=== PATIENT | male | born 1960 | race Caucasian/White ===

== ENCOUNTER 2021-01-05 10:41 | Outpatient (CLI) | payer BC, OTHER, SELFPAY ==
[2021-01-05 12:49] LABS: #Basophils 0.1 10x3/uL (0.0-0.2); #Eosinphils 0.2 10x3/uL (0.0-0.5); #Monocytes 0.7 10x3/uL (0.0-1.1); #Neutrophils 4.5 10x3/uL (1.5-8.4); %Basophils 1.2 % (0.0-2.0); %Eosinophils 2.4 % (0.0-6.0); %Lymphocytes 27.2 % (18.0-47.0); %Monocytes 8.7 % (0.0-10.0); Hemoglobin 14.2 g/dL (13.5-17.5); Mean Corpuscular HGB CONC 33.3 g/dL (32.0-36.0); Mean Corpuscular Volume 90.3 fl (81.2-95.1); Mean Platelet Volume 10.2 fl (7.4-10.4); Platelet Count 214 10x3/uL (150-450); RBC Distribution Width 12.7 % (11.5-14.5); Red Blood Cell (RBC) Count 4.73 10x6/uL (4.32-5.72); White Blood Cell (WBC) Count 7.5 10x3/uL (3.5-10.5)
[2021-01-05 13:36] LABS: ALT (SGPT) 29 U/L (8-55); AST (SGOT) 24 U/L (5-34); Albumin 4.4 g/dL (3.5-5.0); Alkaline Phosphatase 88 U/L (40-110); Anion Gap 14 mmol/L (10-20); BUN (Urea Nitrogen) 20 mg/dL (8.4-25.7); Bilirubin, Total 0.7 mg/dL (0.2-1.2); Calc. Creatinine Clearance 0 mL/min (70-130); Calcium 9.3 mg/dL (7.8-10.44); Carbon Dioxide 26 mmol/L (22-29); Chloride 104 mmol/L (98-107); Globulin 2.7 g/dL (2.4-3.5); Glucose 94 mg/dL (70-105); Potassium 4.1 mmol/L (3.5-5.1); Protein, Total 7.1 g/dL (6.0-8.3); Sodium 140 mmol/L (136-145)
[2021-01-05 23:42] LABS: SARS-CoV-2 PCR by NAA Not Detected (NotDetected)
== END 2021-01-05 10:42 | disposition home or self-care (01) ==
LOC: LABBT 10:41
PROVIDERS: ATTEND Internal Medicine Cardiovascular Disease
DX: Z01.812 Encounter for preprocedural laboratory examination (principal); Z20.822 Contact with and (suspected) exposure to COVID-19; I47.2 Ventricular tachycardia
CPT/HCPCS: 80053; 85025; 87635; U0003; U0005

== ENCOUNTER 2021-01-08 08:08 | Day surgery (SDC) | payer BC ==
[2021-01-07 09:46] VITALS: BMI 45.9
[2021-01-08] MEDS ORDERED: Lidocaine 1% (PF) 30 ML VIAL ONE (09:24)
[2021-01-08 09:36] LABS: Cardiac Risk 3.8 (Less than 4.5)
[2021-01-08] MEDS ORDERED: Heparin 10,000 UNITS/ 10 ML VIAL ONE (09:38)
[2021-01-08] MEDS ORDERED: Verapamil 5 MG/2 ML VIAL ONE (09:38)
[2021-01-08] MEDS ORDERED: Nitroglycerin 100MG/250ML BOT 250 ML ONE (09:38)
[2021-01-08] MEDS ORDERED: Fentanyl 100 MCG/2 ML VIAL ONE (10:39)
[2021-01-08] MEDS ORDERED: Midazolam HCl 2 mg/2 ml Vial ONE (10:39)
[2021-01-08] MEDS ORDERED: Iopamidol 370 76% 100 ML VIAL ONE (15:04)
== END 2021-01-08 14:02 | disposition home or self-care (01) ==
LOC: CCL 08:08
PROVIDERS: ATTEND Internal Medicine Cardiovascular Disease
PROC: B2111ZZ Fluoroscopy of Multiple Coronary Arteries using Low Osmolar Contrast (ICD-10-PCS; principal; 2021-01-08)
PROC: 4A023N7 Measurement of Cardiac Sampling and Pressure, Left Heart, Percutaneous Approach (ICD-10-PCS; principal; 2021-01-08)
DX: I47.2 Ventricular tachycardia (principal); I49.3 Ventricular premature depolarization; I35.1 Nonrheumatic aortic (valve) insufficiency; I10 Essential (primary) hypertension; E11.9 Type 2 diabetes mellitus without complications; F17.290 Nicotine dependence, other tobacco product, uncomplicated; G47.33 Obstructive sleep apnea (adult) (pediatric); E66.9 Obesity, unspecified; Z68.42 Body mass index [BMI] 45.0-49.9, adult; Z79.899 Other long term (current) drug therapy
CPT/HCPCS: 80061; 93458; 99152; J1644; J2001; J2250; J3010; Q9967